=== PATIENT | male | born 1975 | race Two or more races ===

== ENCOUNTER 2016-10-25 15:14 | Emergency (ER) | payer BC ==
--- NOTE | 2016-10-25 17:50 | EDM.PDOC ---
ED HPI GENERAL MEDICAL PROBLEM - General Chief Complaint: Chest Pain Stated Complaint: CHEST PAIN/L ARM PAIN FOR 3+ DAYS Time Seen by Provider: 10/25/16 15:47 Source of Information: Reports: Patient History Limitations: Reports: No Limitations - History of Present Illness INITIAL COMMENTS - FREE TEXT/NARRATIVE: 41-year-old male presents for evaluation and treatment of left-sided chest pain and some numbness and tingling to the left arm. Patient reports his symptoms have been present since , started about one week ago. Patient reports a Sunday was the worst. He states that the symptoms have since started to go away. He states that on Sunday the pain was a sharp sensation. States it goes into his back on occasion. Reports that is episodic and lasts minutes to maybe an hour before it dissipates. Patient has found that sometimes exercising such as doing pushups will help alleviate the symptoms. He reports associated symptoms of diaphoresis, dizziness and he feels like his head is "cloudy". He denies any shortness of breath, nausea or vomiting. Patient questions if this is anxiety. He reports that he has a friend who recently and another friend who is very ill. Patient has no cardiac history. Patient also has a concern about a bump to the left axilla. First noticed this several days ago. States it is tender. No erythema or drainage. Patient is healthy with no known medical conditions. Not on any medications. No history of diabetes, hypertension or hypercholesterolemia. - Related Data Allergies Allergy/AdvReac Type Severity Reaction Status Date / Time No Known Allergies Allergy Verified 10/25/16 15:20 Home Meds: Home Meds . [No Known Home Meds] 10/25/16 [History] Past Medical History HEENT History: Reports: Impaired Vision Psychiatric History: Reports: Addiction Social & Family History - Tobacco Use Smoking Status *Q: Current Some Day Smoker Years of Tobacco use: 15 Packs/Tins Daily: 0.1 - Caffeine Use Caffeine Use: Reports: Coffee - Alcohol Use Days Per Week of Alcohol Use: 7 Number of Drinks Per Day: 3 Total Drinks Per Week: 21 - Recreational Drug Use Recreational Drug Use: Yes Drug Use in Last 12 Months: No Recreational Drug Type: Reports: Methamphetamine Recreational Drug Use Frequency: Not Used In Over 6 Months ED ROS GENERAL - Review of Systems Review Of Systems: See Below Constitutional: Reports: Diaphoresis Respiratory: Denies: Shortness of Breath Cardiovascular: Reports: Chest Pain, Lightheadedness GI/Abdominal: Denies: Abdominal Pain, Nausea, Vomiting Skin: Reports: Lumps (left axilla tender, no erythema or drainage) Neurological: Reports: Dizziness. Denies: Syncope Psychiatric: Reports: Anxiety ED EXAM, GENERAL - Physical Exam Exam: See Below Exam Limited By: No Limitations General Appearance: Alert, WD/WN, No Apparent Distress Eye Exam: Bilateral Eye: Normal Inspection Ears: Normal External Exam Nose: Normal Inspection Throat/Mouth: Normal Inspection, Normal Lips, Normal Voice, No Airway Compromise Respiratory/Chest: No Respiratory Distress, Lungs Clear, Normal Breath Sounds, Other (chest is tender to palpation of the costalsternal junction at ribs 4 and 5) Cardiovascular: Normal Peripheral Pulses, Regular Rate, Rhythm, No Murmur Peripheral Pulses: 2+: Radial (L), Radial (R) GI/Abdominal: Soft, Non-Tender Neurological: Alert, Oriented, Normal Cognition Psychiatric: Normal Affect, Normal Mood Skin Exam: Warm, Dry, Normal Color, Other (approximately 0.5cm in diameter movable, tender, cystic feeling lump to the left axilla) EKG INTERPRETATION EKG Date: 10/25/16 Time: 15:20 Rhythm: NSR Rate (Beats/Min): 58 [place]: Normal P-Wave: Present QRS: Normal ST-T: Normal QT: Normal EKG Interpretation Comments: NSR at 58 bpm. Poor "r" wave progression. Near Q waves III and AVF - consider old inferior wall NH. Reviewd by myself andDr. Hammond. Course - Vital Signs Last Recorded V/S: Last Vital Signs Temp 36.6 C 10/25/16 15:20 Pulse 61 10/25/16 18:20 Resp 18 10/25/16 15:20 BP 106/81 10/25/16 18:20 Pulse Ox 97 10/25/16 18:20 - Orders/Labs/Meds Orders: Active Orders 24 hr Category Date Time Status Cardiac Monitoring [RC] . DIRECTED Care 10/25/16 15:50 Active EKG 12 Lead [EKG Documentation Completion] [RC] STAT Care 10/25/16 15:50 Active Chest 2V [CR] Stat Exams 10/25/16 15:51 Taken Labs: Laboratory Tests 10/25/16 10/25/16 Range/Units 16:00 16:00 WBC 8.86 (4.23-9.07) K/mm3 RBC 5.54 (4.63-6.08) M/mm3 Hgb 16.4 (13.7-17.5) gm/L Hct 47.0 (40.1-51.0) % MCV 84.8 (79.0-92.2) fl MCH 29.6 (25.7-32.2) pg MCHC 34.9 (32.2-35.5) g/dl RDW Std Deviation 40.0 (35.1-43.9) fL Plt Count 279 (163-337) K/mm3 MPV 10.8 (9.4-12.3) fl Neut % (Auto) 54.9 (34.0-67.9) % Lymph % (Auto) 33.9 (21.8-53.1) % [place] % (Auto) 9.0 (5.3-12.2) % Eos % (Auto) 1.7 (0.8-7.0) Baso % (Auto) 0.3 (0.1-1.2) % Neut # (Auto) 4.86 (1.78-5.38) K/mm3 Lymph # (Auto) 3.00 (1.32-3.57) K/mm3 [place] # (Auto) 0.80 (0.30-0.82) K/mm3 Eos # (Auto) 0.15 (0.04-0.54) K/mm3 Baso # (Auto) 0.03 (0.01-0.08) K/mm3 Sodium 140 (136-145) mEq/L Potassium 4.1 (3.5-5.1) mEq/L Chloride 105 (98-107) mEq/L Carbon Dioxide 28 (21-32) mEq/L Anion Gap 11.1 (5-15) BUN 15 (7-18) mg/dL Creatinine 1.3 (0.7-1.3) mg/dL Est Cr Clr Drug Dosing 76.29 mL/min Estimated GFR (MDRD) > 60 (>60) mL/min BUN/Creatinine Ratio 11.5 L (14-18) Glucose 104 (74-106) mg/dL Calcium 9.0 (8.5-10.1) mg/dL Total Bilirubin 0.5 (0.2-1.0) mg/dL AST 32 (15-37) U/L ALT 79 H (16-63) U/L Alkaline Phosphatase 100 (46-116) U/L Troponin I < 0.017 (0.00-0.056) ng/mL Total Protein 7.5 (6.4-8.2) g/dl Albumin 3.8 (3.4-5.0) g/dl Globulin 3.7 gm/dL Albumin/Globulin Ratio 1.0 (1-2) Lipase 97 (73-393) U/L - Radiology Interpretation Free Text/Narrative:: chest xray shows no acute intrathoracic process - Re-Assessments/Exams Free Text/Narrative Re-Assessment/Exam: 10/25/16 17:46 I reviewed the EKG, chest x-ray and lab results the patient. I feel that his chest pain is most likely related to chest wall. Likely something like costochondritis. 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 He states that he had an injury to that area several years ago. I question if this injury just continues to bother him on occasion. At this point I do not feel it is cardiac or respiratory related. The lump to the left axilla appears to be cystic. Also possibly an inflamed lymph node. No further treatment warranted at this time. I will have him follow-up with a family medicine provider to discuss his chest pain further. It is also possibly anxiety if he does report he is more anxious than normal. Discharge instructions as documented. Departure - Departure Time of Disposition: 17:48 Disposition: Home, Self-Care 01 Condition: Good Clinical Impression: Chest wall pain Instructions: Chest Wall Pain, [id number] Referrals: PCP,None [Primary Care Provider] - Rupert Painter [Physician] - Forms: ED Department Discharge Additional Instructions: Rest. [id number] Tylenol or Motrin as needed for pain relief. Follow-up with family medicine. Recommend Dr. Tee or Yobani Hernández PA-C. Please call [phone] to schedule with either provider. They are located at the [facility]. Please return to the ER if her symptoms change or worsen. - My Orders Last 24 Hours: My Active Orders 10/25/16 15:50 Cardiac Monitoring [RC] . DIRECTED EKG 12 Lead [EKG Documentation Completion] [RC] STAT 10/25/16 15:51 Chest 2V [CR] Stat - Assessment/Plan Last 24 Hours: My Active Orders 10/25/16 15:50 Cardiac Monitoring [RC] . DIRECTED EKG 12 Lead [EKG Documentation Completion] [RC] STAT 10/25/16 15:51 Chest 2V [CR] Stat
[2016-10-25 18:36] VITALS: BP 106/81
--- NOTE | 2016-10-30 07:57 | CR ---
Chest: Two views of the chest were obtained. Comparison: No prior study. Heart size and mediastinum are within normal limits. Lungs are clear. Bony structures are unremarkable for the patient's age. Impression: 1. Nothing acute is appreciated on two-view chest x-ray. Diagnostic code #1
== END 2016-10-25 18:25 | disposition home or self-care (01) ==
LOC: JD.ED 15:14
DX: R07.89 Other chest pain (principal); F17.210 Nicotine dependence, cigarettes, uncomplicated
CPT/HCPCS: 36415; 71020; 71020-26; 80053; 83690; 84484; 85025; 93005; 93010; 99285-25